=== PATIENT | male | born 1930 | race Caucasian/White ===

== ENCOUNTER 2016-06-30 21:27 | Inpatient (IN) | payer MEDICARE, OTHER ==
[~2016-06-30] VITALS: Ht 185.4 cm; Wt 80.0 kg
--- NOTE | ~2016-06-30 | WRIGHTHP ---
[place], [place] PATIENT HISTORY AND PHYSICAL EXAM [id number] #: [id number] ROOM: 521 DOCTOR: LEELA RANDALL DO BIRTHDATE: [birth year] DOS: 07/01/2016 PRIMARY CARE [facility]IC[facility]. The patient was seen and evaluated with the resident on 07/01/2016. Please see the resident's note for further details. ASSESSMENT: 1. Syncope, etiology unclear at this time. 2. Sinus bradycardia. 3. Mild dehydration, now resolved. 4. Acute renal failure, now resolved. 5. Macrocytic anemia with a low normal vitamin B12 level. 6. Hypertension. 7. Hyperlipidemia. 8. Hypothyroidism. 9. Chronic low back pain. PLAN: Cardiology has been consulted. Echocardiogram has been ordered. Because the patient has macrocytic anemia and a low normal B12 level, B12 injections will be initiated. Continue to follow cardiac enzymes. LEELA RANDALL DO CM:HISPHYS:PATIENT HISTORY AND PHYSICAL EXAMINATION [id number] LEELA RANDALL DO 07/01/16 1250 interface
--- NOTE | ~2016-06-30 | EKG ---
[place], [place] ELECTROCARDIOGRAM REPORT NAME: KEREN FREITAS UNIT #: [id number] ROOM: 521 DOCTOR: CHRIST WINCHESTER MD BIRTHDATE: [birth year] DOS: 06/30/2016 TIME: 2146 hours. FINDINGS: 1. Sinus rhythm at rate of 70 with sinus arrhythmia. 2. Normal electrocardiogram. CHRIST WINCHESTER MD CM:EKGRPT:ELECTROCARDIOGRAM REPORT [id number] CHRIST WINCHESTER MD
[~2016-06-30 21:27] MED LIST: ASPIRIN81 M1 PO; LEVOTHYROXIN0.075 MG PO
[2016-06-30 21:28] VITALS: BP 166/97
[2016-06-30 21:49] LABS: BASO % 0.6 % (0.0-1.0); EOS # 0.2 10*3/uL (0.0-0.4); EOS % 6.7 % (1.0-4.0); HEMATOCRIT 37.4 % (42.0-52.0); HEMOGLOBIN 12.4 g/dl (14.0-18.0); LYMPH % 28.7 % (27.0-41.0); MEAN CELL VOLUME 95.9 fl (80.0-94.0); MEAN CORPUSCULAR HGB 31.8 pg (27.0-31.0); MEAN CORPUSCULAR HGB CONC 33.2 g/dl (33.0-37.0); MEAN PLATELET VOLUME 8.8 fl (9.6-12.3); MONO # 0.2 10*3/uL (0.1-1.0); MONO % 6.7 % (3.0-9.0); PLATELET COUNT AUTOMATED 187 10*3/uL (130-400); RED CELL DISTRI WIDTH 13.2 % (0-14.5); WHITE BLOOD COUNT 3.6 10*3/uL (4.8-10.8)
[2016-06-30 21:55] VITALS: BP 128/77
[2016-06-30 22:05] LABS: ALKALINE PHOSPHATASE 56 U/L (45-117); BILIRUBIN, TOTAL 0.7 mg/dl (0.2-1.0); BUN 20 mg/dl (7-24); CARBON DIOXIDE 29 mmol/L (21-32); CHLORIDE 104 mmol/L (98-107); EST GLOM FILT AFRICAN AMERICAN > 60 ml/min; GLUCOSE 146 mg/dL (65-99); POTASSIUM 4.1 mmol/L (3.5-5.1); SGOT/AST 19 IU/L (3-35); SGPT/ALT 16 U/L (12-78); SODIUM 142 mmol/L (136-145); TOTAL PROTEIN 7.7 gm/dL (6.4-8.2)
[2016-06-30 22:06] LABS: TROPONIN I < 0.015 ng/ml (<0.045)
[2016-06-30 22:18] VITALS: BP 118/70; BP 152/90
[2016-06-30 22:43] VITALS: BP 127/67
[2016-06-30 23:07] VITALS: BP 131/86
[2016-07-01 00:03] VITALS: BP 155/72
[2016-07-01 00:33] LABS: BILIRUBIN NEGATIVE (NEGATIVE); BLOOD NEGATIVE (NEGATIVE); CLARITY CLEAR (CLEAR); COLOR YELLOW (YELLOW); GLUCOSE NEGATIVE (NEGATIVE); KETONE NEGATIVE (NEGATIVE); LEUKO ESTERASE NEGATIVE (NEGATIVE); NITRITE NEGATIVE (NEGATIVE); PH 5.5 (5.0-9.0); PROTEIN NEGATIVE (NEGATIVE); UROBILINOGEN 0.2 E.U./dl (0.2-1.0)
[2016-07-01 00:48] LABS: WBC 0-2 wbc/hpf (0-5)
[2016-07-01 00:49] LABS: URINE REFLEX COMMENT NO (NO)
[2016-07-01 01:00] VITALS: BP 172/85
[2016-07-01 07:14] LABS: BASO % 0.6 % (0.0-1.0); EOS # 0.3 10*3/uL (0.0-0.4); EOS % 9.1 % (1.0-4.0); HEMATOCRIT 33.1 % (42.0-52.0); HEMOGLOBIN 10.9 g/dl (14.0-18.0); LYMPH # 1.1 10*3/uL (1.3-4.4); LYMPH % 34.7 % (27.0-41.0); MEAN CELL VOLUME 97.1 fl (80.0-94.0); MEAN CORPUSCULAR HGB CONC 32.9 g/dl (33.0-37.0); MONO # 0.3 10*3/uL (0.1-1.0); MONO % 8.5 % (3.0-9.0); NEUT # 1.5 10*3/uL (2.3-7.9); NEUT % 47.1 % (47.0-73.0); PLATELET COUNT AUTOMATED 173 10*3/uL (130-400); RED BLOOD COUNT 3.41 10*6/uL (4.50-5.90); RED CELL DISTRI WIDTH 13.1 % (0-14.5); WHITE BLOOD COUNT 3.2 10*3/uL (4.8-10.8)
[2016-07-01 07:26] LABS: HEMOGLOBIN A1c 5.1 % (4.8-5.6)
[2016-07-01 07:33] LABS: CHLORIDE 110 mmol/L (98-107); POTASSIUM 3.7 mmol/L (3.5-5.1); SODIUM 131 mmol/L (136-145)
[2016-07-01 07:39] LABS: CKMB 2.1 ng/ml (0.5-3.6); TROPONIN I 0.026 ng/ml (<0.045)
[2016-07-01 07:51] LABS: BUN 19 mg/dl (7-24); CARBON DIOXIDE 27 mmol/L (21-32); CHOLESTEROL 135 mg/dL (<200); EST GLOM FILT AFRICAN AMERICAN > 60 ml/min; FOLIC ACID 15.81 ng/mL (>5.38); FREE T4 1.03 ng/dl (0.76-1.46); GLUCOSE 72 mg/dL (65-99); HDL CHOLESTEROL 60 mg/dl (40-60); LDL CHOLESTEROL 64 mg/dL (9-159); MAGNESIUM 1.7 mg/dL (1.5-2.1); PHOSPHOROUS 2.9 mg/dL (2.5-4.9); TRIGLYCERIDES 53 mg/dl (<150); VITAMIN D, 25-HYDROXY 32.5 ng/mL (30-100); VLDL CHOLESTEROL 11 mg/dL (6-40)
[2016-07-01 08:11] VITALS: BP 147/74
[2016-07-01 12:00] VITALS: BP 165/87
[2016-07-01 12:16] LABS: CKMB 2.1 ng/ml (0.5-3.6); TROPONIN I 0.02 ng/ml (<0.045)
[2016-07-01 16:00] VITALS: BP 152/76
[2016-07-01 20:44] VITALS: BP 147/72
[2016-07-02] VITALS: BP 158/78
[2016-07-02 06:32] LABS: BASO % 0.6 % (0.0-1.0); EOS # 0.3 10*3/uL (0.0-0.4); EOS % 10.6 % (1.0-4.0); HEMATOCRIT 34.9 % (42.0-52.0); HEMOGLOBIN 11.6 g/dl (14.0-18.0); LYMPH # 1.2 10*3/uL (1.3-4.4); LYMPH % 37.6 % (27.0-41.0); MEAN CELL VOLUME 97.2 fl (80.0-94.0); MEAN CORPUSCULAR HGB 32.3 pg (27.0-31.0); MEAN CORPUSCULAR HGB CONC 33.2 g/dl (33.0-37.0); MONO # 0.3 10*3/uL (0.1-1.0); NEUT # 1.3 10*3/uL (2.3-7.9); NEUT % 43.2 % (47.0-73.0); PLATELET COUNT AUTOMATED 174 10*3/uL (130-400); RED BLOOD COUNT 3.59 10*6/uL (4.50-5.90); RED CELL DISTRI WIDTH 13.2 % (0-14.5); WHITE BLOOD COUNT 3.1 10*3/uL (4.8-10.8)
[2016-07-02 07:03] LABS: ALBUMIN 3.2 gm/dl (3.1-4.5); BUN 16 mg/dl (7-24); CARBON DIOXIDE 27 mmol/L (21-32); CHLORIDE 107 mmol/L (98-107); GLUCOSE 79 mg/dL (65-99); POTASSIUM 4.1 mmol/L (3.5-5.1); SODIUM 141 mmol/L (136-145)
[2016-07-02 07:08] LABS: ALKALINE PHOSPHATASE 48 U/L (45-117); BILIRUBIN, TOTAL 0.6 mg/dl (0.2-1.0); EST GLOM FILT AFRICAN AMERICAN > 60 ml/min; SGOT/AST 13 IU/L (3-35); SGPT/ALT 14 U/L (12-78); TOTAL PROTEIN 6.6 gm/dL (6.4-8.2)
[2016-07-02 08:00] VITALS: BP 154/76
[2016-07-02 12:00] VITALS: BP 154/72
== END 2016-07-02 13:29 | disposition home or self-care (01) | DRG 312 ==
LOC: ED 21:27 → 5E 07-01 00:32 → EDHOLD 07-01 00:32 → 5E 07-01 00:40
PROVIDERS: Emergency Medicine; Emergency Medicine Emergency Medical Services; Student in an Organized Health Care Education/Training Program
DX: R55 Syncope and collapse (principal); N17.0 Acute kidney failure with tubular necrosis; E44.1 Mild protein-calorie malnutrition; R00.1 Bradycardia, unspecified; D53.9 Nutritional anemia, unspecified; M54.5 Low back pain; D72.819 Decreased white blood cell count, unspecified; I10 Essential (primary) hypertension; E78.5 Hyperlipidemia, unspecified; G89.29 Other chronic pain; E03.9 Hypothyroidism, unspecified; D64.9 Anemia, unspecified; M15.9 Polyosteoarthritis, unspecified